=== PATIENT | female | born 1940 | race Caucasian/White ===

== ENCOUNTER 2017-11-07 09:33 | Day surgery (SDC) | payer MEDICARE, OTHER ==
[~2017-11-07] VITALS: Ht 165.1 cm; Wt 74.2 kg
[2017-11-07] MEDS ORDERED: PEPCID 20MG TAB20 MG PO (10:05)
[2017-11-07] MEDS ORDERED: INDERAL80 MG PO (10:05)
[2017-11-07] MEDS ORDERED: PRINIVIL20 MG PO (10:06)
[2017-11-07] MEDS ORDERED: NORVASC 5MG5 MG/TAB PO (10:06)
[2017-11-07] MEDS ORDERED: CALCIUM CITRAT200 M2 PO (10:06)
[2017-11-07] MEDS ORDERED: HCTZ 25MG TAB25 MG PO (10:07)
[2017-11-07] MEDS ORDERED: XALATAN EYE DROPS OD (10:07)
[2017-11-07] MEDS ORDERED: GLUCOSAMINE & C1 CA2 PO (10:08)
[2017-11-07] MEDS ORDERED: PROBIOTIC FORMU1 CAP PO (10:08)
[2017-11-07] MEDS ORDERED: SIMBRINZA 0.2%-18 ML OP (10:08)
[2017-11-07] MEDS ORDERED: MULTI VITAMINS1 TAB PO (10:08)
[2017-11-07 10:10] VITALS: BP 132/81; PULSE 66; TEMP 99.3
[2017-11-07 12:00] VITALS: BP 119/57; PULSE 68; TEMP 97.8
[2017-11-07 12:15] VITALS: BP 101/56; PULSE 62
[2017-11-07 12:30] VITALS: BP 91/57; PULSE 61
== END 2017-11-07 13:00 | disposition home or self-care (01) ==
LOC: SDCO 09:33
DX: Z12.11 Encounter for screening for malignant neoplasm of colon (principal); K57.30 Diverticulosis of large intestine without perforation or abscess without bleeding; K62.89 Other specified diseases of anus and rectum; K21.9 Gastro-esophageal reflux disease without esophagitis; Z86.010 Personal history of colon polyps
CPT/HCPCS: J2250; J3010; J7030